=== PATIENT | male | born 1960 | race Caucasian/White ===

== ENCOUNTER 2021-06-08 16:10 | Inpatient (IN) | payer BC ==
[~2021-06-08] VITALS: Ht 177.8 cm; Wt 111.1 kg
[~2021-06-08 16:10] MED LIST: BETAPACE80 MG PO; ELIQUIS5 MG PO; LOPRESSOR 25 MG25 MG PO
[2021-06-08 17:27] LABS: HEMOGLOBIN 13.7 gm/dl (14.0-17.5); RED BLOOD COUNT 5.44 M/UL (4.20-5.50); WHITE BLOOD COUNT 13.3 K/UL (4.5-11.0)
[2021-06-09 06:41] LABS: HEMOGLOBIN 11.1 gm/dl (14.0-17.5); RED BLOOD COUNT 4.2 M/UL (4.20-5.50); WHITE BLOOD COUNT 6.5 K/UL (4.5-11.0)
[2021-06-09 07:00] LABS: BUN/CREATININE RATIO 29 (0-10)
[2021-06-09] MEDS ORDERED: EDARBYCLOR 40-1 EAC1 PO (07:31)
[2021-06-09] MEDS ORDERED: ATORVASTATIN CA10 MG PO (11:59)
[2021-06-09] MEDS ORDERED: CATAPRES 0.1MG0.1 MG PO (12:00)
[2021-06-09] MEDS ORDERED: VITAMIN D210 MCG PO (12:01)
[2021-06-09] MEDS ORDERED: B COMPLEX1 EACH PO (12:02)
[2021-06-09] MEDS ORDERED: THERA-TABS1 EACH PO (12:03)
[2021-06-09] MEDS ORDERED: LOPRESSOR 25 MG25 MG PO (12:49)
[2021-06-09 14:06] LABS: BUN/CREATININE RATIO 17 (0-10)
[2021-06-10 03:27] LABS: HEMOGLOBIN 12.1 gm/dl (14.0-17.5)
[2021-06-10 03:56] LABS: RED BLOOD COUNT 4.85 M/UL (4.20-5.50); WHITE BLOOD COUNT 10.7 K/UL (4.5-11.0)
[2021-06-10] MEDS ORDERED: BETAPACE80 MG PO (09:27)
[2021-06-10] MEDS ORDERED: AMLODIPINE BESYL5 MG PO (09:27)
== END 2021-06-10 14:58 | disposition home or self-care (01) | DRG 291 ==
LOC: ER1 16:10 → CDU 20:52 → PROG CARE 06-09 14:18
PROVIDERS: Physician Assistant; ADMIT Internal Medicine
PROC: B24BZZZ Ultrasonography of Heart with Aorta (ICD-10-PCS; principal; 2021-06-09)
PROC: 5A2204Z Restoration of Cardiac Rhythm, Single (ICD-10-PCS; 2021-06-10)
DX: I13.0 Hypertensive heart and chronic kidney disease with heart failure and stage 1 through stage 4 chronic kidney disease, or unspecified chronic kidney disease (principal); Z20.822 Contact with and (suspected) exposure to COVID-19; I50.23 Acute on chronic systolic (congestive) heart failure; E03.9 Hypothyroidism, unspecified; I48.0 Paroxysmal atrial fibrillation; E78.00 Pure hypercholesterolemia, unspecified; E78.5 Hyperlipidemia, unspecified; N18.2 Chronic kidney disease, stage 2 (mild); E53.8 Deficiency of other specified B group vitamins; I08.1 Rheumatic disorders of both mitral and tricuspid valves; Z90.49 Acquired absence of other specified parts of digestive tract; Z80.3 Family history of malignant neoplasm of breast; Z82.49 Family history of ischemic heart disease and other diseases of the circulatory system; Z83.3 Family history of diabetes mellitus; Z82.3 Family history of stroke
CPT/HCPCS: ECHO; 71045; 80048; 80053; 81001; 82550; 82553; 83735; 83880; 84439; 84443; 84484; 85025; 85027; 93005; 93306; 96374; 96375; 96376; 99285; J1200; J1940; J2250; J3010; J7030; U0002

== ENCOUNTER 2021-06-14 08:53 | Inpatient (IN) | payer BC ==
[~2021-06-14] VITALS: Ht 177.8 cm; Wt 108.9 kg
[~2021-06-14 08:53] MED LIST changes: +AMLODIPINE BESYL5 MG PO; +ATORVASTATIN CA10 MG PO; +B COMPLEX1 EACH PO; +CATAPRES 0.1MG0.1 MG PO; +EDARBYCLOR 40-1 EAC1 PO; +MULTIVITAMIN1 EACH PO; +VITAMIN D210 MCG PO
[2021-06-14 09:38] LABS: HEMOGLOBIN 13.4 gm/dl (14.0-17.5); RED BLOOD COUNT 5.33 M/UL (4.20-5.50); WHITE BLOOD COUNT 12.6 K/UL (4.5-11.0)
[2021-06-14] MEDS ORDERED: ASPIRIN EC81 MG PO (14:42)
[2021-06-14] MEDS ORDERED: SOTALOL120 MG PO (15:01)
[2021-06-15 02:11] LABS: HEMOGLOBIN 12.5 gm/dl (14.0-17.5); RED BLOOD COUNT 5.04 M/UL (4.20-5.50); WHITE BLOOD COUNT 10.5 K/UL (4.5-11.0)
[2021-06-15] MEDS ORDERED: NORVASC5 MG PO (09:28)
[2021-06-16 02:16] LABS: HEMOGLOBIN 12.5 gm/dl (14.0-17.5); RED BLOOD COUNT 4.92 M/UL (4.20-5.50); WHITE BLOOD COUNT 8.7 K/UL (4.5-11.0)
[2021-06-16] MEDS ORDERED: OMNICEF 300 MG300 MG PO (11:01)
[2021-06-16] MEDS ORDERED: LASIX20 MG PO (11:01)
== END 2021-06-16 11:54 | disposition home or self-care (01) | DRG 286 ==
LOC: ER1 08:53 → CDU 12:55 → PROG CARE 16:05
PROVIDERS: Emergency Medicine; Physician Assistant; ADMIT Internal Medicine
PROC: 4A023N7 Measurement of Cardiac Sampling and Pressure, Left Heart, Percutaneous Approach (ICD-10-PCS; principal; 2021-06-15)
PROC: B2111ZZ Fluoroscopy of Multiple Coronary Arteries using Low Osmolar Contrast (ICD-10-PCS; 2021-06-15)
DX: I13.0 Hypertensive heart and chronic kidney disease with heart failure and stage 1 through stage 4 chronic kidney disease, or unspecified chronic kidney disease (principal); I50.23 Acute on chronic systolic (congestive) heart failure; J18.9 Pneumonia, unspecified organism; Z20.822 Contact with and (suspected) exposure to COVID-19; N17.9 Acute kidney failure, unspecified; N18.2 Chronic kidney disease, stage 2 (mild); I48.0 Paroxysmal atrial fibrillation; E78.5 Hyperlipidemia, unspecified; D51.3 Other dietary vitamin B12 deficiency anemia; I34.0 Nonrheumatic mitral (valve) insufficiency; E03.9 Hypothyroidism, unspecified; G47.00 Insomnia, unspecified; E78.00 Pure hypercholesterolemia, unspecified; Z82.49 Family history of ischemic heart disease and other diseases of the circulatory system; Z79.01 Long term (current) use of anticoagulants; Z90.49 Acquired absence of other specified parts of digestive tract
CPT/HCPCS: 0240U; 36415; 71045; 78452; 80048; 80053; 80076; 82550; 82553; 83605; 83880; 84484; 85025; 85027; 87040; 93005; 93017; 96374; 96375; 99152; 99153; 99285; A9502; C1769; C1887; C1894; J0360; J0696; J1644; J1940; J2250; J2785; J3010; J7030; Q9965